=== PATIENT | male | born 1930 | race Hispanic/Latino ===

== ENCOUNTER → 2019-09-13 | Outpatient (CLI) | payer OTHER, MEDICARE ==
[~2019-09-13] MED LIST: AMPICILLIN PO; ASPI-555 PO; CIPR250S5 PO; CLOT30SO2 TP; ETOD400T2 PO; FINA5TAB41 PO; GABA-529 PO; METF-445 PO; METO-409 PO; PANT40TA25 PO; PRAV40TA3 PO; SANTO TP; TAMS-1 PO; XALA2.5OS OU
== END | disposition home or self-care (01) ==
LOC: SHCH 11:04
PROVIDERS: ATTEND Internal Medicine Cardiovascular Disease
DX: I51.7 Cardiomegaly (principal); R01.1 Cardiac murmur, unspecified
CPT/HCPCS: 93306; 93356